=== PATIENT | male | born 2005 | race Caucasian/White ===

== ENCOUNTER 2025-10-28 22:13 | Emergency (ER) | payer OTHER, SELFPAY ==
[2025-10-28 22:16] VITALS: BP 129/91
[2025-10-28 23:34] VITALS: BMI 17.4
--- NOTE | 2025-10-28 23:38 | ED.GENMED ---
History of Present Illness
General
Chief Complaint: Nose Bleed
Source: patient and family
Exam Limitations: none
Time Seen by Provider: 10/28/25 23:15
Nursing documentation reviewed up to this point in time: agreed with
History of Present Illness
History of Present Illness:
19-year-old male companied by his mother right sided nosebleed onset this afternoon stopped then returned, has had a previously with dry air, started today while driving his car, no other bleeding, no trauma no blood thinners never required medical
evaluation
Phy Exam
Physical Exam
Physical Exam:
Physical Exam
General: no apparent distress, not acutely ill
Neck: Oozing from the right medial nare
Lungs: no acute respiratory distress.
Neuro: alert and oriented. no focal neurological deficits
Skin: no rash
Psychiatric: well kept. interactive and cooperative
Extremities: no edema.
Course
Orders/Labs/Results
Orders:
Orders
10/29/25 00:00
Tranexamic Acid 500 mg TOPICAL NOW STA
10/29/25 01:49
Amoxicillin [Amoxil] 500 mg PO NOW STA
Vital Signs
Initial and Last Documented VS:
Initial Vital Signs
Temp Pulse Resp BP Pulse Ox
98 F 74 16 129/91 98
10/28/25 22:16 10/28/25 22:16 10/28/25 22:16 10/28/25 22:16 10/28/25 22:16
Last Documented Vital Signs
Temp Pulse Resp BP Pulse Ox
98 F 102 16 132/79 100
10/28/25 22:16 10/29/25 01:01 10/28/25 22:16 10/29/25 01:01 10/29/25 01:01
Procedures
Nosebleed
Drug treatment: Epinephrine and Tranexamic Acid
Treatment: local pressure applied, Silver nitrate cautery and Merocel packing
Post treatment bleeding: none- good control, still some oozing and continue to observe
MDM/Problems Addressed
Differential Diagnosis Includes:
Anterior nosebleed posterior nosebleed no coagulopathy
MDM/Problems Addressed:
Nosebleed
*Pulse Oximetry
SaO2: 98
Oxygen Mode of Delivery: Room air
Patient hypoxic: no
*Critical Care Note
Total Time (30-74mins, 75-104mins- exclusive of procedures): Not Applicable
Update Note
Update Note:
Update still oozing after silver nitrate will try TXA pledgets
1:30 AM after TXA looks pretty dry patient certainly still oozing will place a Merisel
ED Attending Note
-
Portions of this chart may have been created with voice recognition software.� Occasional wrong word or��sound alike� substitutions may have occurred due to the inherent limitations of voice recognition software.
Discharge Plan
Departure
Patient Disposition: Home (Routine Discharge)
Date of Disposition: 10/29/25
Time of Disposition: 01:50
Patient with high blood pressure during this ER visit?: No
Condition: Good
Discharge Problem:
Bleeding nose
Instructions: Nosebleeds (DC)
Prescriptions:
New
amoxicillin 500 mg tablet
500 mg PO TID Qty: 14 0RF
Referrals:
NONE,* [Family Provider, Internal Medicine]
Grupo Varma, DO [Active, ENT] - Follow up in 2-3 days
Interventions
Interventions:
*General Assessment Last Done: 10/28/25 23:37
*Neglect/Abuse Screening Last Done: 10/28/25 22:16
*ED COVID-19 Vaccine History Last Done: 10/28/25 23:35
*ED Influenza Vaccine History Last Done: 10/28/25 23:35
[facility] Fall Risk Assessment Tool Last Done: 10/28/25 23:35
*Risk Screen - Suicide (C-SSRS) Last Done: 10/28/25 22:16
ED-EENT Assessment Last Done: 10/28/25 23:38
Discharge Date and Time
Print Language: UPPER SORBIAN
[2025-10-29] MEDS: TRANEXAMIC ACID 500 MG TOPICAL (00:29)
[2025-10-29 01:01] VITALS: BP 132/79
[2025-10-29] MEDS: AMOXIL 500 MG PO (02:19)
== END 2025-10-29 02:20 | disposition home or self-care (01) ==
LOC: EMR 22:13
PROVIDERS: EMERGENCY PHYSICIAN Emergency Medicine
DX: R04.0 Epistaxis (principal)
CPT/HCPCS: 30901; 99282